=== PATIENT | female | born 1980 | race Hispanic/Latino ===

== ENCOUNTER 2020-09-19 17:57 | Emergency (ER) | payer MEDICAID ==
[2020-09-19] MEDS ORDERED: FAMOTIDINE 20 MG/2 ML INJ IV ONE (19:19)
[2020-09-19] MEDS ORDERED: SODIUM CHLORIDE 0.9% 1000 ML 1,000 ML IV ONE (19:20)
[2020-09-19] MEDS ORDERED: PROCHLORPERAZINE EDISYLATE 10 MG/2 ML VIAL IV ONE (19:20)
[2020-09-19 19:50] LABS: Basophils % (Auto) 0.3 % (0.0-1.8); Hematocrit 41.3 % (30.3-42.9); Hemoglobin 14.4 gm/dl (10.1-14.3); Lymphocytes # (Auto) 1.6 K/mm3 (1.2-5.4); Lymphocytes % (Auto) 22.2 % (13.4-35.0); Mean Corpuscular HGB Conc 35 % (30-34); Mean Corpuscular Volume 82 fl (79-97); Monocytes # (Auto) 0.4 K/mm3 (0.0-0.8); Monocytes % (Auto) 5.5 % (0.0-7.3); Platelet Count 230 K/mm3 (140-440); Red Blood Count 5.05 M/mm3 (3.65-5.03)
[2020-09-19 19:55] LABS: Alanine Aminotransferase 32 units/L (7-56); Albumin 4.3 g/dL (3.9-5); BUN/Creatinine Ratio 10; Blood Urea Nitrogen 8 mg/dL (7-17); Calcium 8.8 mg/dL (8.4-10.2); Hemolysis Index 13
[2020-09-20] MEDS ORDERED: SODIUM CHLORIDE 0.9% 1000 ML 1,000 ML ONE (00:10)
[2020-09-20] MEDS ORDERED: FAMOTIDINE 20 MG/2 ML INJ IV ONE (00:11)
--- NOTE | 2020-09-20 01:09 | Emergency Department Report ---
ED N/V/D HPI - General Chief complaint: Nausea/Vomiting/Diarrhea Stated complaint: NAUSEA/VOMITING/DIARRHEA Source: patient Mode of arrival: Ambulatory Limitations: No Limitations - History of Present Illness Initial comments: Patient is a 40-year-old white female with a history of morbid obesity who presents to the ED with complaint of acute onset persistent diffuse body aches and pains, subjective fever and chills, generalized weakness and fatigue, intractable nausea and vomiting with diarrhea and mild diffuse abdominal pain for the last 2 days. Patient states that she has not been able to keep anything down in the last 12 hours. Patient states that she has had up to 5 episodes of vomiting and 4 episodes of diarrhea. Patient states that no one else at home is had similar symptoms. Patient states that the symptoms started after she ate food from a restaurant over 2 days ago. Patient denies dizziness, syncope, chest pain, shortness of breath, cough, sore throat, headache, dysuria, urinary frequency urgency, vaginal discharge, vaginal bleeding, palpitations, back pain or hematemesis. MD complaint: nausea, vomiting, diarrhea -: Sudden, days(s) (2) Description of Vomiting: food contents Associated Abdominal Pain: Yes Location: diffuse Radiation: none Severity: moderate Pain Scale: 5 Quality: cramping, aching, dull Consistency: intermittent Improves with: none Worsens with: eating, vomiting Context: possible food poisoning Associated Symptoms: denies other symptoms, myalgias, fever/chills, headaches, loss of appetite, malaise, nausea/vomiting. denies: chest pain, cough, diaphoresis, shortness of breath, syncope, weakness, other - Related Data Previous Rx's Medication Instructions Recorded Last Taken Type Dicyclomine [Bentyl] 20 mg PO Q6H PRN #30 tablet 09/20/20 Unknown Rx Famotidine [Pepcid] 20 mg PO BID #60 tablet 09/20/20 Unknown Rx Promethazine [Phenergan] 25 mg PO Q6HR PRN #30 tab 09/20/20 Unknown Rx Allergies Allergy/AdvReac Type Severity Reaction Status Date / Time metoclopramide [From Reglan] Allergy Unknown Verified 09/19/20 18:24 ondansetron [From Zofran] Allergy Unknown Verified 09/19/20 18:24 opiates Allergy Unknown Uncoded 01/16/21 18:24 ED Review of Systems ROS: Stated complaint: NAUSEA/VOMITING/DIARRHEA Other details as noted in HPI Constitutional: chills, fever, malaise, weakness Eyes: denies: eye pain, eye discharge, vision change ENT: denies: ear pain, throat pain Respiratory: denies: cough, shortness of breath, SOB with exertion, SOB at rest, wheezing Cardiovascular: denies: chest pain, palpitations, edema, paroxysmal nocturnal dyspnea Endocrine: no symptoms reported Gastrointestinal: abdominal pain, nausea, vomiting, diarrhea Genitourinary: denies: urgency, dysuria, discharge Musculoskeletal: arthralgia, myalgia. denies: back pain, joint swelling Skin: denies: rash, lesions Neurological: denies: headache, weakness, paresthesias Psychiatric: denies: anxiety, depression Hematological/Lymphatic: denies: easy bleeding, easy bruising ED Past Medical Hx - Past Medical History Previous Medical History?: No - Surgical History Past Surgical History?: Yes Additional Surgical History: x 3, Tubaligation, Ectopic - Social History Smoking Status: Current Every Day Smoker - Medications Home Medications: Home Medications Medication Instructions Recorded Confirmed Last Taken Type Dicyclomine [Bentyl] 20 mg PO Q6H PRN #30 tablet 09/20/20 Unknown Rx Famotidine [Pepcid] 20 mg PO BID #60 tablet 09/20/20 Unknown Rx Promethazine [Phenergan] 25 mg PO Q6HR PRN #30 tab 09/20/20 Unknown Rx ED Physical Exam - General Limitations: No Limitations General appearance: alert, in no apparent distress - Head Head exam: Present: atraumatic, normocephalic, normal inspection - Eye Eye exam: Present: normal appearance, PERRL, EOMI Pupils: Present: normal accommodation - ENT ENT exam: Present: normal exam, normal orophraynx, mucous membranes moist, TM's normal bilaterally, normal external ear exam - Neck Neck exam: Present: normal inspection, full ROM - Respiratory Respiratory exam: Present: normal lung sounds bilaterally. Absent: respiratory distress, wheezes, rales, rhonchi, chest wall tenderness, accessory muscle use, decreased breath sounds - Cardiovascular Cardiovascular Exam: Present: normal rhythm, tachycardia, normal heart sounds. Absent: systolic murmur, diastolic murmur, rubs, gallop - GI/Abdominal GI/Abdominal exam: Present: soft, normal bowel sounds. Absent: tenderness, guarding, rebound, hyperactive bowel sounds, hypoactive bowel sounds, organom egaly, mass - Extremities Exam Extremities exam: Present: normal inspection, full ROM, normal capillary refill - Back Exam Back exam: Present: normal inspection, full ROM. Absent: tenderness, CVA tenderness (R), CVA tenderness (L), muscle spasm, paraspinal tenderness, vertebral tenderness - Neurological Exam Neurological exam: Present: alert, oriented X3, CN II-XII intact, normal gait, reflexes normal - Psychiatric Psychiatric exam: Present: normal affect, normal mood - Skin Skin exam: Present: warm, dry, intact, normal color. Absent: rash ED Course Vital Signs 09/19/20 09/20/20 18:20 02:09 Temperature 98 F 98 F Pulse Rate 117 H 86 Respiratory 20 16 Rate Blood Pressure 102/64 Blood Pressure 122/88 [Left] O2 Sat by Pulse 97 100 Oximetry ED Medical Decision Making - Lab Data Result diagrams: 09/19/20 19:24 09/19/20 19:24 - Medical Decision Making This is a 40-year-old white female with a history of morbid obesity who presents to the ED with complaint of acute onset persistent diffuse body aches and pains, subjective fever and chills, generalized weakness and fatigue, intractable nausea and vomiting with diarrhea and mild diffuse abdominal pain for the last 2 days. Patient states that she has not been able to keep anything down in the last 12 hours. Patient states that she has had up to 5 episodes of vomiting and 4 episodes of diarrhea. Patient states that no one else at home is had similar symptoms. Patient states that the symptoms started after she ate food from a restaurant over 2 days ago. In the ED, patient is alert and oriented x3 and is not in distress but tachycardic and afebrile in triage. Amari palomo was treated for nausea and vomiting in the ED, also given antacids and normal saline 1 L IV bolus x1. Lab test results were reviewed and are all nonactionable except for mildly elevated liver lipase levels to 65 possibly due to intractable nausea and vomiting. On reevaluation, patient's tachycardia resolved and patient is hemodynamically stable. Patient felt better and passed oral fluid challenge in the ED. Patient was discharged home on medications and advised to maintain a clear liquid diet for 12 to 24 hours, take medications and drink plenty of fluids. Patient was advised return to the ED immediately if symptoms get worse. - Differential Diagnosis Gastroenteritis; GERD; Viral syndrome; dehydration; pancreatitis Critical care attestation.: If time is entered above; I have spent that time in minutes in the direct care of this critically ill patient, excluding procedure time. ED Disposition Clinical Impression: Viral gastroenteritis, Nausea, vomiting and diarrhea Disposition: TO HOME OR SELFCARE Is pt being admited?: No Does the pt Need Aspirin: No Condition: Stable Instructions: Viral Gastroenteritis, Adult, [id number], Nausea and Vomiting, Adult, [id number] Additional Instructions: All lab test results were reviewed and are all nonactionable except for slightly elevated lipase level which may be due to intractable nausea and vomiting. Therefore maintain a clear liquid diet for 12 to 24 hours, drink plenty of fluids and take medications as needed for nausea and vomiting and pain. Follow- up with your primary care physician in 5 to 7 days for reevaluation or return to the ED immediately if symptoms get worse. Prescriptions: Dicyclomine [Bentyl] 20 mg PO Q6H PRN #30 tablet PRN Reason: Abdominal pain Famotidine [Pepcid] 20 mg PO BID #60 tablet Promethazine [Phenergan] 25 mg PO Q6HR PRN #30 tab PRN Reason: Nausea Referrals: Jose KHALIL [Other] - 3-5 Days Forms: Work/School Release Form(ED) Time of Disposition: 01:11 Print Language: AZERI
[2020-09-20 02:09] VITALS: BP 122/88
== END 2020-09-20 02:10 | disposition home or self-care (01) ==
LOC: ED 17:57
DX: A08.4 Viral intestinal infection, unspecified (principal); R11.2 Nausea with vomiting, unspecified; R19.7 Diarrhea, unspecified; F17.200 Nicotine dependence, unspecified, uncomplicated; Z98.890 Other specified postprocedural states; Z79.899 Other long term (current) drug therapy; Z88.8 Allergy status to other drugs, medicaments and biological substances
CPT/HCPCS: 36415; 80053; 83690; 84703; 85025; 96361; 96374; 96375; 99283; J0780; J7030